=== PATIENT | male | born 1990 | race Caucasian/White ===

== ENCOUNTER 2020-06-10 12:31 | Emergency (ER) | payer BC | END 2020-06-10 13:00 | disposition home or self-care (01) | LOC: BURERS 12:31 | DX: M54.5 Low back pain (principal); F31.9 Bipolar disorder, unspecified; F90.9 Attention-deficit hyperactivity disorder, unspecified type; X50.9XXA Other and unspecified overexertion or strenuous movements or postures, initial encounter; Y99.0 Civilian activity done for income or pay; Z87.891 Personal history of nicotine dependence | CPT/HCPCS: 99283 ==

== ENCOUNTER 2021-01-29 17:30 | Emergency (ER) | payer BC, SELFPAY ==
[2021-01-29] MEDS ORDERED: Tetracaine 0.5% PF 4 ML BOT ONE (17:47)
[2021-01-29] MEDS ORDERED: Fluorescein Opthalmic Strip ONE (17:47)
== END 2021-01-29 18:00 | disposition home or self-care (01) ==
LOC: BURERS 17:30
DX: T25.422A Corrosion of unspecified degree of left foot, initial encounter (principal); Z77.098 Contact with and (suspected) exposure to other hazardous, chiefly nonmedicinal, chemicals; F17.210 Nicotine dependence, cigarettes, uncomplicated
CPT/HCPCS: 99283

== ENCOUNTER 2021-03-12 21:27 | Emergency (ER) | payer SELFPAY | END 2021-03-12 23:56 | disposition home or self-care (01) | LOC: BURERS 21:27 | DX: J06.9 Acute upper respiratory infection, unspecified (principal); F17.210 Nicotine dependence, cigarettes, uncomplicated | CPT/HCPCS: 99283 ==

== ENCOUNTER 2021-04-27 20:55 | Emergency (ER) | payer SELFPAY ==
[2021-04-27] MEDS ORDERED: Ondansetron ODT 4 MG TAB ONE (21:24)
[2021-04-28 18:45] LABS: SARS-CoV-2 PCR by NAA Not Detected (NotDetected)
== END 2021-04-27 21:35 | disposition home or self-care (01) ==
LOC: BURERS 20:55
DX: A08.4 Viral intestinal infection, unspecified (principal); Z20.822 Contact with and (suspected) exposure to COVID-19; F17.210 Nicotine dependence, cigarettes, uncomplicated
CPT/HCPCS: 99284; Q0162; U0003; U0005

== ENCOUNTER 2022-01-05 10:11 | Emergency (ER) | payer OTHER, SELFPAY ==
[2022-01-05 10:42] LABS: #Basophils 0.1 thou/uL (0.0-0.2); #Eosinphils 0.1 thou/uL (0.0-0.7); #Lymphocytes 2.5 thou/uL (1.20-3.40); #Monocytes 0.6 thou/uL (0.11-0.59); #Neutrophils 4.9 thou/uL (1.40-6.50); %Basophils 0.9 % (0.0-1.0); %Eosinophils 0.8 % (0.0-10.0); %Lymphocytes 30.6 % (21.0-51.0); %Monocytes 7.8 % (0.0-10.0); %Neutrophils 59.9 % (42.0-75.0); Hemoglobin 16.4 g/dL (14.0-18.0); Mean Corpuscular HGB CONC 32.8 g/dL (32.0-36.0); Mean Corpuscular Hemoglobin 31.6 pg (27.0-31.0); Mean Corpuscular Volume 96.2 fL (78.0-98.0); Mean Platelet Volume 5.9 fL (7.4-10.4); Platelet Count 222 thou/uL (130-400); RBC Distribution Width 13.3 % (11.5-14.5); Red Blood Cell (RBC) Count 5.21 mill/uL (4.70-6.10); White Blood Cell (WBC) Count 8.2 thou/uL (4.8-10.8)
[2022-01-05 11:01] LABS: ALT (SGPT) 36 U/L (8-55); AST (SGOT) 27 U/L (5-34); Albumin 4.5 g/dL (3.5-5.0); Alkaline Phosphatase 81 U/L (40-110); Anion Gap 13 mmol/L (10-20); BUN (Urea Nitrogen) 14 mg/dL (8.9-20.6); Bilirubin, Total 0.4 mg/dL (0.2-1.2); Calc. Creatinine Clearance 0 mL/min (70-130); Calcium 10.5 mg/dL (7.8-10.44); Carbon Dioxide 25 mmol/L (22-29); Chloride 110 mmol/L (98-107); Globulin 3.1 g/dL (2.4-3.5); Glucose 101 mg/dL (70-105); Potassium 4.3 mmol/L (3.5-5.1); Protein, Total 7.6 g/dL (6.0-8.3); Sodium 144 mmol/L (136-145)
[2022-01-05] MEDS ORDERED: Acetaminophen 500 MG TAB ONE (11:22)
[2022-01-05] MEDS ORDERED: Boostrix 0.5 ML (Tdap) VIAL ONE (11:22)
[2022-01-05] MEDS ORDERED: Bacitracin 1 PK ONE (11:22)
[2022-01-05] MEDS ORDERED: Lidocaine 1% w/Epinephrine 1:100K 20 ML VIAL ONE (11:22)
[2022-01-05] MEDS ORDERED: CEFAZOLIN 1 GM VIAL ONE (11:23)
[2022-01-05] MEDS ORDERED: Sodium Chloride 0.9% 200 ML ONE (11:29)
[2022-01-05] MEDS ORDERED: traMADol HCl 50 MG TAB ONE (12:09)
== END 2022-01-05 13:12 | disposition home or self-care (01) ==
LOC: BURERS 10:11
DX: S09.90XA Unspecified injury of head, initial encounter (principal); S02.5XXA Fracture of tooth (traumatic), initial encounter for closed fracture; S01.81XA Laceration without foreign body of other part of head, initial encounter; K02.9 Dental caries, unspecified; F17.210 Nicotine dependence, cigarettes, uncomplicated; Z23 Encounter for immunization; W20.8XXA Other cause of strike by thrown, projected or falling object, initial encounter; W18.30XA Fall on same level, unspecified, initial encounter
CPT/HCPCS: 12011; 70450; 70486; 71045; 72125; 80053; 85025; 90471; 90715; 96365; J0690; J3490

== ENCOUNTER 2022-01-09 07:17 | Emergency (ER) | payer OTHER, SELFPAY | END 2022-01-09 07:48 | disposition home or self-care (01) | LOC: BURERS 07:17 | DX: S01.81XD Laceration without foreign body of other part of head, subsequent encounter (principal); F17.210 Nicotine dependence, cigarettes, uncomplicated; X58.XXXD Exposure to other specified factors, subsequent encounter ==

== ENCOUNTER 2022-01-09 21:37 | Emergency (ER) | payer SELFPAY | END 2022-01-09 22:06 | disposition home or self-care (01) | LOC: BURERS 21:37 | DX: F07.81 Postconcussional syndrome (principal); F17.210 Nicotine dependence, cigarettes, uncomplicated | CPT/HCPCS: 99283 ==

== ENCOUNTER 2022-01-18 16:07 | Emergency (ER) | payer OTHER, SELFPAY ==
[2022-01-18] MEDS ORDERED: Ketorolac Tromethamine 30 MG/ML VIAL ONE (16:48)
[2022-01-18 16:49] LABS: #Basophils 0.1 thou/uL (0.0-0.2); #Monocytes 1.5 thou/uL (0.11-0.59); %Basophils 0.5 % (0.0-1.0); %Lymphocytes 10.5 % (21.0-51.0); Mean Corpuscular HGB CONC 33.4 g/dL (32.0-36.0); Mean Corpuscular Hemoglobin 31.6 pg (27.0-31.0); Mean Corpuscular Volume 94.5 fL (78.0-98.0); Mean Platelet Volume 6.4 fL (7.4-10.4); Platelet Count 265 thou/uL (130-400); RBC Distribution Width 12.9 % (11.5-14.5); Red Blood Cell (RBC) Count 5.68 mill/uL (4.70-6.10); White Blood Cell (WBC) Count 18.5 thou/uL (4.8-10.8)
[2022-01-18 17:07] LABS: ALT (SGPT) 40 U/L (8-55); AST (SGOT) 70 U/L (5-34); Albumin 5.1 g/dL (3.5-5.0); Alkaline Phosphatase 94 U/L (40-110); Anion Gap 18 mmol/L (10-20); BUN (Urea Nitrogen) 28 mg/dL (8.9-20.6); Bilirubin, Total 0.8 mg/dL (0.2-1.2); CK (CPK) 2181 U/L (30-200); Calc. Creatinine Clearance 0 mL/min (70-130); Carbon Dioxide 23 mmol/L (22-29); Chloride 100 mmol/L (98-107); Globulin 3.6 g/dL (2.4-3.5); Glucose 107 mg/dL (70-105); Lipase 19 U/L (8-78); Potassium 4.7 mmol/L (3.5-5.1); Protein, Total 8.7 g/dL (6.0-8.3); Sodium 136 mmol/L (136-145)
[2022-01-18 17:24] LABS: Bilirubin Small (Negative); Blood, Urine Moderate (Negative); Clarity Cloudy (Clear); Glucose, Urine (Dipstick) Negative (Negative); Ketone, Urine Trace mg/dL (Negative); Leukocyte Negative (Negative); Nitrite Negative (Negative); Protein, Urine (Dipstick) 100 mg/dL (Neg-Trace); Specific Gravity, Urine 1.025 (1.005-1.030); Urobilinogen 0.2 mg/dL (Less than 2)
[2022-01-18 17:31] LABS: Bacteria/HPF 3+ HPF (None Seen); Mucous/LPF 2+ LPF (<2+); Squamous Epithelial 0-3 HPF (0-3); WBC/HPF 0-3 HPF (0-3)
== END 2022-01-18 18:40 | disposition home or self-care (01) ==
LOC: BURERS 16:07
DX: T67.2XXA Heat cramp, initial encounter (principal); X30.XXXA Exposure to excessive natural heat, initial encounter; F17.210 Nicotine dependence, cigarettes, uncomplicated
CPT/HCPCS: 80053; 81003; 81015; 82550; 83690; 85025; 96361; 96374; J1885

== ENCOUNTER 2022-02-10 22:07 | Emergency (ER) | payer OTHER | END 2022-02-11 01:35 | disposition home or self-care (01) | LOC: BURERS 22:07 | DX: U07.1 COVID-19 (principal); F17.210 Nicotine dependence, cigarettes, uncomplicated; Z87.442 Personal history of urinary calculi | CPT/HCPCS: 71045; 87804; U0003; U0005 ==

== ENCOUNTER 2022-02-19 06:32 | Emergency (ER) | payer OTHER ==
[2022-02-19] MEDS ORDERED: AMOXicillin 250 MG CAP ONE (07:16)
== END 2022-02-19 07:20 | disposition home or self-care (01) ==
LOC: BURERS 06:32
DX: K08.89 Other specified disorders of teeth and supporting structures (principal); F17.210 Nicotine dependence, cigarettes, uncomplicated
CPT/HCPCS: 99282

== ENCOUNTER 2022-03-23 20:06 | Emergency (ER) | payer OTHER, SELFPAY ==
[2022-03-23 20:50] LABS: #Basophils 0.2 thou/uL (0.0-0.2); #Lymphocytes 3.1 thou/uL (1.20-3.40); #Monocytes 1.8 thou/uL (0.11-0.59); #Neutrophils 13.3 thou/uL (1.40-6.50); %Basophils 0.8 % (0.0-1.0); %Eosinophils 0.1 % (0.0-10.0); %Lymphocytes 17.1 % (21.0-51.0); %Monocytes 9.7 % (0.0-10.0); %Neutrophils 72.3 % (42.0-75.0); Hemoglobin 18.7 g/dL (14.0-18.0); Mean Corpuscular HGB CONC 34.1 g/dL (32.0-36.0); Mean Corpuscular Hemoglobin 31.2 pg (27.0-31.0); Mean Corpuscular Volume 91.5 fL (78.0-98.0); Mean Platelet Volume 6.6 fL (7.4-10.4); Platelet Count 269 thou/uL (130-400); RBC Distribution Width 12.7 % (11.5-14.5); Red Blood Cell (RBC) Count 5.98 mill/uL (4.70-6.10); White Blood Cell (WBC) Count 18.4 thou/uL (4.8-10.8)
[2022-03-23] MEDS ORDERED: Ondansetron PF 4 MG/2 ML Vial ONE (20:53)
[2022-03-23] MEDS ORDERED: Pantoprazole 40 MG VIAL ONE (20:53)
[2022-03-23 21:08] LABS: ALT (SGPT) 45 U/L (8-55); AST (SGOT) 34 U/L (5-34); Albumin 5.5 g/dL (3.5-5.0); Alkaline Phosphatase 102 U/L (40-110); Anion Gap 21 mmol/L (10-20); BUN (Urea Nitrogen) 44 mg/dL (8.9-20.6); Bilirubin, Total 1.1 mg/dL (0.2-1.2); CK (CPK) 1138 U/L (30-200); Calc. Creatinine Clearance 0 mL/min (70-130); Calcium 11.9 mg/dL (7.8-10.44); Carbon Dioxide 19 mmol/L (22-29); Chloride 92 mmol/L (98-107); Estimated GFR 21; Globulin 3.5 g/dL (2.4-3.5); Glucose 125 mg/dL (70-105); Lipase 31 U/L (8-78); Potassium 3.9 mmol/L (3.5-5.1); Sodium 128 mmol/L (136-145)
[2022-03-23] MEDS ORDERED: Fentanyl 100 MCG/2 ML VIAL ONE (23:18)
== END 2022-03-23 23:45 | disposition short-term general hospital (02) ==
LOC: BURERS 20:06
DX: N17.9 Acute kidney failure, unspecified (principal); M62.82 Rhabdomyolysis; E87.1 Hypo-osmolality and hyponatremia; F17.210 Nicotine dependence, cigarettes, uncomplicated
CPT/HCPCS: 36415; 71045; 80053; 82550; 83605; 83690; 84484; 85025; 93005; 96374; 96375; C9113; J2405; J3010

== ENCOUNTER 2022-07-18 18:18 | Emergency (ER) | payer OTHER, SELFPAY ==
[2022-07-18 19:24] LABS: #Basophils 0.1 thou/uL (0.0-0.2); #Lymphocytes 1.7 thou/uL (1.20-3.40); #Monocytes 1.2 thou/uL (0.11-0.59); #Neutrophils 11.6 thou/uL (1.40-6.50); %Basophils 0.6 % (0.0-1.0); %Lymphocytes 11.5 % (21.0-51.0); %Monocytes 8.5 % (0.0-10.0); %Neutrophils 79.4 % (42.0-75.0); Hemoglobin 18.9 g/dL (14.0-18.0); Mean Corpuscular HGB CONC 33.8 g/dL (32.0-36.0); Mean Corpuscular Volume 94.6 fl (78.0-98.0); Mean Platelet Volume 7.5 fL (7.4-10.4); Platelet Count 263 10x3/uL (130-400); RBC Distribution Width 12.5 % (11.5-14.5); Red Blood Cell (RBC) Count 5.89 mill/uL (4.70-6.10); White Blood Cell (WBC) Count 14.6 10x3/uL (4.8-10.8)
[2022-07-18 19:35] LABS: Bilirubin Small (Negative); Blood, Urine Moderate (Negative); Clarity Slightly Cloudy (Clear); Glucose, Urine (Dipstick) Negative (Negative); Ketone, Urine 15 mg/dL (Negative); Leukocyte Negative (Negative); Nitrite Negative (Negative); Protein, Urine (Dipstick) 30 mg/dL (Neg-Trace); Urobilinogen 0.2 mg/dL (Less than 2)
[2022-07-18 19:43] LABS: ALT (SGPT) 53 U/L (8-55); AST (SGOT) 47 U/L (5-34); Albumin 5.6 g/dL (3.5-5.0); Alkaline Phosphatase 103 U/L (40-110); Anion Gap 17 mmol/L (10-20); BUN (Urea Nitrogen) 39 mg/dL (8.9-20.6); Bilirubin, Total 0.7 mg/dL (0.2-1.2); Calc. Creatinine Clearance 0 mL/min (70-130); Calcium 12.3 mg/dL (7.8-10.44); Carbon Dioxide 23 mmol/L (22-29); Chloride 98 mmol/L (98-107); Estimated GFR 34; Globulin 3.5 g/dL (2.4-3.5); Glucose 86 mg/dL (70-105); Potassium 4.1 mmol/L (3.5-5.1); Protein, Total 9.1 g/dL (6.0-8.3); Sodium 134 mmol/L (136-145)
[2022-07-18 19:44] LABS: WBC/HPF 0-3 HPF (0-3)
[2022-07-18 19:45] LABS: Bacteria/HPF 1+ HPF (None Seen); Squamous Epithelial 0-3 HPF (0-3)
[2022-07-18 19:46] LABS: Calcium Oxalate Crystals 2+ HPF (None Seen)
[2022-07-18] MEDS ORDERED: Morphine 4 MG/ML VIAL ONE (20:26)
[2022-07-19 09:38] LABS: Anion Gap 11 mmol/L (10-20)
[2022-07-19 09:51] LABS: BUN (Urea Nitrogen) 21 mg/dL (8.9-20.6); CK (CPK) 576 U/L (30-200); Carbon Dioxide 23 mmol/L (22-29); Chloride 108 mmol/L (98-107); Glucose 105 mg/dL (70-105); Sodium 138 mmol/L (136-145)
[2022-07-19 09:55] LABS: Calc. Creatinine Clearance 0 mL/min (70-130); Calcium 10.2 mg/dL (7.8-10.44); Estimated GFR 98
[2022-07-19] MEDS ORDERED: Ondansetron PF 4 MG/2 ML Vial ONE (10:35)
== END 2022-07-19 10:46 | disposition home or self-care (01) ==
LOC: BURERS 18:18
DX: M62.82 Rhabdomyolysis (principal); N17.9 Acute kidney failure, unspecified; R11.2 Nausea with vomiting, unspecified; F17.210 Nicotine dependence, cigarettes, uncomplicated
CPT/HCPCS: 36415; 80048; 80053; 81003; 81015; 82550; 85025; 96361; 96374; 96375; J2270; J2405

== ENCOUNTER 2022-09-23 00:29 | Emergency (ER) | payer SELFPAY | END 2022-09-23 01:20 | disposition home or self-care (01) | LOC: BURERS 00:29 | DX: S93.601A Unspecified sprain of right foot, initial encounter (principal); F17.210 Nicotine dependence, cigarettes, uncomplicated; X50.1XXA Overexertion from prolonged static or awkward postures, initial encounter; Y92.89 Other specified places as the place of occurrence of the external cause ==

== ENCOUNTER 2023-12-17 07:15 | Emergency (ER) | payer BC, SELFPAY ==
[2023-12-17] MEDS ORDERED: Ketorolac Tromethamine 30 MG (1 mL) VIAL ONE (07:42)
[2023-12-17] MEDS ORDERED: Ondansetron PF 4 MG/2 ML Vial ONE (07:51)
[2023-12-17] MEDS ORDERED: Morphine 4 MG/ML VIAL ONE (07:51)
== END 2023-12-17 07:47 | disposition home or self-care (01) ==
LOC: BURERS 07:15
DX: K12.2 Cellulitis and abscess of mouth (principal); F17.210 Nicotine dependence, cigarettes, uncomplicated
CPT/HCPCS: 96372; 99282; J1885; J2270; J2405

== ENCOUNTER 2024-05-14 20:04 | Emergency (ER) | payer BC ==
[2024-05-14] MEDS ORDERED: Ketorolac Tromethamine 30 MG (1 mL) VIAL ONE (20:38)
[2024-05-14] MEDS ORDERED: Acetaminophen 500 MG TAB ONE (21:39)
== END 2024-05-14 21:56 | disposition home or self-care (01) ==
LOC: BURERS 20:04
DX: S93.601A Unspecified sprain of right foot, initial encounter (principal); F17.210 Nicotine dependence, cigarettes, uncomplicated; W22.8XXA Striking against or struck by other objects, initial encounter; Y99.0 Civilian activity done for income or pay
CPT/HCPCS: 96372; 99283; J1885